=== PATIENT | female | born 1945 | race Caucasian/White ===

== ENCOUNTER 2018-02-21 16:46 | Emergency (ER) | payer MEDICARE, BC ==
[~2018-02-21] VITALS: Ht 165.1 cm; Wt 97.5 kg
[2018-02-21 16:46] VITALS: BP 181/89
== END 2018-02-21 17:34 | disposition home or self-care (01) ==
LOC: ER 16:47
DX: S00.83XA Contusion of other part of head, initial encounter (principal); E66.9 Obesity, unspecified; Z85.828 Personal history of other malignant neoplasm of skin; Z98.890 Other specified postprocedural states; Z88.0 Allergy status to penicillin; Z60.2 Problems related to living alone; W01.119A Fall on same level from slipping, tripping and stumbling with subsequent striking against unspecified sharp object, initial encounter; Y93.89 Activity, other specified; Y92.89 Other specified places as the place of occurrence of the external cause; Y99.0 Civilian activity done for income or pay
CPT/HCPCS: 99283; A4606; Z7610

== ENCOUNTER 2021-12-13 16:04 | Emergency (ER) | payer BC, MEDICARE ==
[~2021-12-13] VITALS: Ht 165.1 cm; Wt 90.7 kg
--- NOTE | 2021-12-13 16:34 | NUR ---
DR IBRAHIM AT BEDSIDE
--- NOTE | 2021-12-13 18:38 | NUR ---
Patient discharged to home in stable condition. Written and verbal after care instructions given. Patient verbalizes understanding of instruction.
[2021-12-13 18:39] VITALS: BP 132/70
== END 2021-12-13 18:40 | disposition home or self-care (01) ==
LOC: ER 16:27
DX: R60.0 Localized edema (principal); Z88.0 Allergy status to penicillin; Z60.2 Problems related to living alone
CPT/HCPCS: 93971-TC